=== PATIENT | male | born 1945 | race Caucasian/White ===

== ENCOUNTER 2017-08-17 11:20 | Emergency (ER) | payer OTHER ==
[2017-08-17 11:44] VITALS: BP 147/68; PULSE 71; TEMP 98.6; BMI 37.1
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
== END 2017-08-17 12:28 | disposition home or self-care (01) ==
LOC: JERFT 11:20
DX: Z04.1 Encounter for examination and observation following transport accident (principal); V43.62XA Car passenger injured in collision with other type car in traffic accident, initial encounter; Y93.89 Activity, other specified; Y92.410 Unspecified street and highway as the place of occurrence of the external cause; F17.210 Nicotine dependence, cigarettes, uncomplicated; I10 Essential (primary) hypertension
CPT/HCPCS: 99281-25